=== PATIENT | male | born 1980 | race Caucasian/White ===

== ENCOUNTER 2018-09-05 23:42 | Emergency (ER) | payer OTHER ==
[~2018-09-05] VITALS: Ht 170.2 cm; Wt 69.0 kg
[2018-09-06] MEDS ORDERED: SODIUM CHLORIDE 0.9% 1,000 ML IV ONE (01:03)
[2018-09-06 01:30] LABS: BASOPHILS % 0.3 % (0.0-2.0); EOSINOPHILS % 1.9 % (0.0-5.0); HEMATOCRIT. 49.7 % (42.0-52.0); HEMOGLOBIN. 17.2 g/dL (14.0-18.0); LYMPHOCYTES % 16.4 % (20.0-50.0); MEAN CORPUSCULAR HEMOGLOBIN 30.5 pg (28.0-32.0); MEAN CORPUSCULAR VOLUME 88.2 fL (80.0-94.0); MONOCYTES % 6.6 % (2.0-8.0); NEUTROPHILS % 74.8 % (40.0-76.0); PLATELET 278 x1000/uL (130-400); RED BLOOD CELL COUNT 5.63 mill/uL (4.7-6.1); RED CELL DISTRIBUTION WIDTH 13.5 % (11.6-14.6)
[2018-09-06 01:36] LABS: CHLORIDE 90 mEq/L (98-107)
[2018-09-06 03:05] VITALS: BP 114/73
== END 2018-09-06 03:07 | disposition home or self-care (01) ==
LOC: ER 23:42
DX: R42 Dizziness and giddiness (principal); F41.9 Anxiety disorder, unspecified; M54.30 Sciatica, unspecified side
CPT/HCPCS: 36415; 80053; 84484; 85025; 93005; 96360; 99284; J7030; Z7610